=== PATIENT | female | born 1985 | race Hispanic/Latino ===

== ENCOUNTER 2016-03-02 22:08 | Emergency (ER) | payer OTHER ==
[~2016-03-02] VITALS: Ht 160 cm; Wt 90.7 kg
[~2016-03-02 22:08] MED LIST: AMOXICILLIN875 M1 PO; CYCLOBENZAPRINE10 M1 PO; FIORICET 300 MG1 CAP PO; IBUPROFEN600 M1 PO; IBUPROFEN800 MG PO; MACROBID 100 M100 MG PO; MOBIC15 M1 PO; NASONEX17 GM NASB; PERCOCET 5-3251 EACH PO; PYRIDIUM200 M1 PO; VITAFOL-ONE CA1 EACH PO; ZOFRAN ODT4 MG PO; ZOFRAN4 M2 PO
--- NOTE | 2016-03-02 22:36 | ED HAND/WRIST INJURY COMPLAINT ---
History of Present Illness General Chief Complaint: Hand or Wrist Injury Stated Complaint: INJURY TO R HAND AROUND 1800 Source: patient Exam Limitations: no limitations Vital Signs & Intake/Output Vital Signs & Intake/Output Vital Signs Date Time Temp Pulse Resp B/P Pulse O2 O2 Flow FiO2 Ox Delivery Rate 03/03 0040 96.5 88 18 140/70 99 Room Air 03/02 2216 97.6 91 16 142/76 98 Room Air Room Air ED Intake and Output 03/03 0000 03/02 1200 Intake Total 0 Output Total Balance 0 Intake, Oral 0 Patient 200 lb Weight Allergies Coded Allergies: NO KNOWN ALLERGIES (03/02/16) Reconcile Medications Cyclobenzaprine HCl 10 MG TABLET 1 TAB PO Q8P SPASMS Meloxicam (Mobic) 15 MG TABLET 1 TAB PO DAILY PAIN Triage Note: PT TO TRIAGE WITH PAIN TO HER RIGHT HAND 2-3 DIGTS AFTER FALLING AT 1800 TODAY. PT STATES SLIPPED ON ICE AND TRIED TO CATCH HERSELF AND FELL WRONG. PT MEDICATED AT TRIAGE. Triage Nurses Notes Reviewed? yes : No Patient currently breastfeeds: No HPI: This patient is a 30-year-old female who presented to the emergency department today for evaluation of right hand pain status post fall. The patient reported that she was playing with her son outside and she slipped. She reported that she tried to reach out and grab something in front of her, but fell onto her right hand. The patient reported that the pains proximally 6 out of 10. She did not take any medication for the pain prior to arrival in the emergency department. She reported that the pain is throbbing and she feels some numbness and tingling in her second and third digits. The patient reported that she has bruising and difficulty moving her second and third digits. She denied any wrist or elbow pain. (KEAGAN AMOR PA-C) Past History Travel History Traveled to [place] past 21 day No Medical History Any Pertinent Medical History? 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 No (KEAGAN AMOR PA-C) Review of Systems Review of Systems Constitutional: Reports: no symptoms. EENTM: Reports: no symptoms. Respiratory: Reports: no symptoms. Cardiovascular: Reports: no symptoms. GI: Reports: no symptoms. Musculoskeletal: Reports: see HPI. Skin: Reports: no symptoms. Neurological/Psychological: Reports: see HPI. All Other Systems: Reviewed and Negative (MT CERON,KEAGAN) Physical Exam Physical Exam Hand Left: normal inspection, normal range of motion Hand Right: ECCHYMOSIS AND EDEMATO THE dip AND pip OF THE SECOND AND THIRD DIGITS. dECREASED ACTIVE RANGE OF MOTION OF THE SECOND AND THIRD DIGITS. nO EVIDENCE OF NAIL INJURY. nO SIGNS OF SKIN BREAKDOWN OR LACERATIONS. nO ERYTHEMA Comments: Well-developed well-nourished person in no acute distress HEENT: Head normocephalic, moist mucous membranes Neck: Supple, no lymphadenopathy Back: Normal gait Respiratory: No respiratory distress. Speaking in full sentences Extremities: No bony or muscular deformities noted Neuro: Alert and oriented x3 Psych: Mood affect normal, normal memory normal judgment. Skin: Warm and dry, no rash on exposed skin (MT CERON,KEAGAN) Progress Differential Diagnosis: abscess, cellulitis, contusion, compartment syndrome, dislocation, felon, fracture, sprain, tenosynovitis Plan of Care: Orders Procedure Date/time Status URINE 03/02 2222 Complete Laboratory Tests 03/02/162235: Urine Test NEGATIVE Diagnostic Imaging: Viewed by Me: Radiology Read. Discussed w/RAD: Radiology Read. Radiology Impression: PATIENT: MAURICE BLANKENSHIP PRESENT AGE: 30 PATIENT ACCOUNT NO: [id number] : 87 LOCATION: [facility] ORDERING PHYSICIAN: KEAGAN AMOR PA-C SERVICE DATE: 03/02/16 EXAM TYPE: RAD - XRY-HAND, RIGHT EXAMINATION: XR HAND, RIGHT CLINICAL INFORMATION: Fall with pain. Rule out fracture COMPARISON: None TECHNIQUE: AP, lateral, and oblique views of the right hand. FINDINGS: No acute fracture or dislocation. Joint spaces are maintained. Alignment is maintained. The soft tissues are unremarkable. IMPRESSION: No fracture or malalignment. DICTATED BY: KUSUM QUIÑONES,ANKIT DATE/TIME DICTATED:03/03/1625 SUBSCRIPTION CREW LEADER:PAUL DATE/ TIME TRANSCRIBED:01/08/17 / 0026 CONFIDENTIAL, DO NOT COPY WITHOUT APPROPRIATE AUTHORIZATION. <Electronically signed in Other Vendor System> SIGNED BY: ANKIT NOE MD 03/03/16 0030 (KEAGAN AMOR PA-C) Departure Departure Disposition: HOME OR SELF CARE Condition: Stable Clinical Impression Primary Impression: Hand injury Qualifiers: Encounter type: initial encounter Laterality: right Qualified Code: S69.91XA - Unspecified injury of right wrist, hand and finger(s), initial encounter Referrals: NITIN PERSAUD MD PATIENT HAS NO PRIMARY CARE DR (PCP/Family) Additional Instructions: Please rest your hand and use the splints provided to you. Please call the orthopedic physician is information has been provided to you in this packet for further evaluation. Return for any worsening symptoms or concerns. Departure Forms: Customer Survey General Discharge Information (KEAGAN AMOR PA-C) PA/RN NIGHT Co-Sign Statement Statement: ED Attending supervision documentation- [] I saw and evaluated the patient. I have also reviewed all the pertinent lab results and diagnostic results. I agree with the findings and the plan of care as documented in the PA's/RN NIGHT's documentation. [x] I have reviewed the ED Record and agree with the PA's/RN NIGHT's documentation. [] Additions or exceptions (if any) to the PAs/RN NIGHT's note and plan are summarized below: [] (JEANNIE QUIÑONES,JAC Nava)
--- NOTE | 2016-03-03 00:30 | RADIOLOGY REPORT ---
EXAMINATION: XR HAND, RIGHT CLINICAL INFORMATION: Fall with pain. Rule out fracture COMPARISON: None TECHNIQUE: AP, lateral, and oblique views of the right hand. FINDINGS: No acute fracture or dislocation. Joint spaces are maintained. Alignment is maintained. The soft tissues are unremarkable. IMPRESSION: No fracture or malalignment.
[2016-03-03 00:40] VITALS: BP 140/70
== END 2016-03-03 00:41 ==
LOC: ERH 22:08
DX: S09.90XA Unspecified injury of head, initial encounter (principal); W19.XXXA Unspecified fall, initial encounter
CPT/HCPCS: 73130-RT; 81025

== ENCOUNTER 2016-03-16 14:00 | Emergency (ER) | payer OTHER ==
[~2016-03-16] VITALS: Ht 160 cm; Wt 92.1 kg
--- NOTE | 2016-03-16 14:36 | ED INFLUENZA/URI COMPLAINT ---
History of Present Illness General Chief Complaint: General Adult Stated Complaint: CONGESTION, WHEEZING Source: patient Exam Limitations: no limitations Vital Signs & Intake/Output Vital Signs & Intake/Output Vital Signs Date Time Temp Pulse Resp B/P Pulse O2 O2 Flow FiO2 Ox Delivery Rate 03/16 1547 98.5 99 16 125/82 98 Room Air 03/16 1533 98.4 03/16 1529 Room Air 03/16 1456 98.4 03/16 1410 98.4 109 18 129/80 96 Room Air Room Air Allergies Coded Allergies: NO KNOWN ALLERGIES (03/02/16) Reconcile Medications Cyclobenzaprine HCl 10 MG TABLET 1 TAB PO Q8P SPASMS Meloxicam (Mobic) 15 MG TABLET 1 TAB PO DAILY PAIN Ondansetron HCl (Zofran) 4 MG TABLET 1 TAB PO Q6-8P PRN NAUSEA Triage Note: TRIAGE: 30 Y/O FEMALE PRESENTS WITHMULTIPLE COMPLAINTS: POSITIVE AT HOME TEST ON 03/14/2016, COUGH, CONGESTION, ETC. AFEBRILE IN TRIAGE. Triage Nurses Notes Reviewed? yes Onset: Gradual Duration: constant Timing: recent history Severity: moderate Severity Numbers: 5 : Yes Patient currently breastfeeds: No HPI: Patient is a 30-year-old female who presents emergency room with a 2 day history of generalized weakness fatigue body aches fevers chills and nonproductive cough sore throat and nausea noted today. Patient is unable tolerate anything by mouth today. Patient states that 2 days ago she took a home test found out to be positive. Patient does have similar sick contacts one son has similar symptoms. Patient has been complaining of a 10 day history of intermittent waxing and waning headache in which patient was previously prescribed Fioricet. Last menstrual period was January 31. Patient denies any chest pain and arm pain jaw pain abdominal pain vaginal bleeding vaginal discharge dysuria hematuria (ANNA MARIE MARTINEZ) Past History Travel History Traveled to [place] past 21 day No Medical History Any Pertinent Medical History? 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 No (ANNA MARIE MARTINEZ) Review of Systems Review of Systems Constitutional: Reports: see HPI, chills, fever. EENTM: Reports: throat pain. Respiratory: Reports: see HPI, cough. Cardiovascular: Reports: no symptoms. GI: Reports: see HPI, nausea. Denies: abdominal pain. Genitourinary: Reports: no symptoms. Denies: discharge, dysuria. Musculoskeletal: Reports: see HPI, joint pain. Skin: Reports: no symptoms. Neurological/Psychological: Reports: see HPI, headache. Hematologic/Endocrine: Reports: no symptoms. Immunologic/Allergic: Reports: no symptoms. All Other Systems: Reviewed and Negative (ANNA MARIE MARTINEZ) Physical Exam Physical Exam General Appearance: well developed/nourished, no apparent distress, alert Ears, Nose, Throat: normal ENT inspection, moist mucous membrane, hearing grossly normal, Tympanic normal, pharynx normal Comments: Well-developed well-nourished person in no acute distress HEENT: Normal EENT exam, extraocular motion intact, no nystagmus. Pupils equally round and reactive to light and accommodation. Nose is atraumatic. External auditory canal and Tympanic membranes clear. Pharynx normal. No swelling or edema. Neck: Supple, no lymphadenopathy, normal range of motion without pain or tenderness Back: Nontender, no CVA tenderness. Cardiovascular: Regular rate and rhythms no murmurs rubs or gallops, normal JVP Respiratory: Chest nontender. No respiratory distress.breath sounds clear to auscultation bilaterally Abdomen: Soft, nontender nondistended, no appreciable organomegaly. Normal bowel sounds. No ascites Extremity: No edema, no calf tenderness to palpation, normal and equal pulses. Neuro: Alert oriented x3, motor sensory normal, Skin: No appreciable rash on exposed skin, skin is warm and dry. Psych: Mood and affect is normal, memory and judgment is normal. Core Measures Severe Sepsis Present: No Septic Shock Present: No (ANNA MARIE MARTINEZ) Progress Differential Diagnosis: influenza, meningitis, neutropenia, otitis, pneumonia, pharyngitis, sinusitis, eCTOPIC , Plan of Care: Orders Procedure Date/time Status URINE 03/16 1452 Complete URINALYSIS 03/16 1451 Complete RAPID VIRAL INFLUENZA A 03/16 1449 Complete THROAT CULTURE W/QUICK STREP 03/16 1449 Active Laboratory Tests 03/16/16 1452: Urine Color YEL, Urine Clarity HAZY H, Urine pH 6.5, Ur Specific [place] 1.020, Urine Protein NEG, Urine Ketones NEG, Urine Nitrite NEG, Urine Bilirubin NEG, Urine Urobilinogen 0.2, Ur Leukocyte Esterase NEG, Ur Microscopic SEDIMENT EXAMINED, Urine RBC 1-3, Urine WBC RARE, Ur Epithelial Cells MANY H, Urine Mucus RARE, Urine Hemoglobin SMALL H, Urine Glucose NEG, Urine Test POSITIVE 03/16/16 1449: Urine Test Cancelled I has unremarkable physical exam findings and no abdominal pain. Due to history of present illness and exam findings or suspicion of upper respiratory infection most likely viral etiology. Strep culture is currently pending. Patient was notified of confirmation. Patient has no abdominal complaints no complaints and which at this time I do not suspect patient have appendicitis nor ectopic . Patient was by mouth challenge prior to arrival was able tolerate. Patient had significant complete resolution of nausea prior to discharge. Discussed disposition plan with Dr. Graham who agrees (ANNA MARIE MARTINEZ) Initial ED EKG: none (ANNA MARIE MARTINEZ) Departure Departure Disposition: HOME OR SELF CARE Condition: Stable Clinical Impression Primary Impression: Upper respiratory disease Secondary Impressions: Referrals: PATIENT HAS NO PRIMARY CARE DR (PCP/Family) Additional Instructions: As discussed begin the prescription of Zofran for nausea. Begin drinking plenty of fluids for hydration. Begin [id number] Tylenol for headaches and body aches. On Friday follow-up with your established NOZZLE CEMENT SPRAYER HELPER. Begin over-the- counter vitamins. If symptoms worsen or if he develop any new concerning symptom return to emergency room immediately. Please discontinue the use of Fioricet. Departure Forms: Customer Survey General Discharge Information Prescriptions: Current Visit Scripts Ondansetron HCl (Zofran) 1 TAB PO Q6-8P PRN NAUSEA #15 TAB (ANNA MARIE MARTINEZ) PA/STORAGE MANAGEMENT CONSULTANT Co-Sign Statement Statement: ED Attending supervision documentation- [] I saw and evaluated the patient. I have also reviewed all the pertinent lab results and diagnostic results. I agree with the findings and the plan of care as documented in the PA's/STORAGE MANAGEMENT CONSULTANT's documentation. [X] I have reviewed the ED Record and agree with the PA's/STORAGE MANAGEMENT CONSULTANT's documentation. [] Additions or exceptions (if any) to the PAs/STORAGE MANAGEMENT CONSULTANT's note and plan are summarized below: [] (BERRY QUIÑONES,JIM Verma)
[2016-03-16] MEDS ORDERED: ZOFRAN4 M2 PO (15:38)
[2016-03-16 15:47] VITALS: BP 125/82
== END 2016-03-16 15:48 ==
LOC: ERH 14:00
DX: O99.511 Diseases of the respiratory system complicating pregnancy, first trimester (principal); J06.9 Acute upper respiratory infection, unspecified; Z3A.00 Weeks of gestation of pregnancy not specified
CPT/HCPCS: 81001; 81025; 87804; 87804-59; J3101

== ENCOUNTER 2016-03-25 01:40 | Emergency (ER) | payer OTHER ==
[2016-03-25 01:54] VITALS: BP 126/79
--- NOTE | 2016-03-25 02:28 | ED INFLUENZA/URI COMPLAINT ---
History of Present Illness General Chief Complaint: Ear Complaints Stated Complaint: RIGHT EAR PAIN , 5 WEEKS PREG Source: patient Exam Limitations: no limitations Vital Signs & Intake/Output Vital Signs & Intake/Output Vital Signs Date Time Temp Pulse Resp B/P Pulse O2 O2 Flow FiO2 Ox Delivery Rate 03/25 0223 Room Air 03/25 0154 97.6 91 18 126/79 98 Room Air Allergies Coded Allergies: NO KNOWN ALLERGIES (03/02/16) Reconcile Medications Amoxicillin/Potassium Clav (Augmentin 875-125 Tablet) 875 MG-125 MG TABLET 1 TAB PO BID EAR INFECTION Cyclobenzaprine HCl 10 MG TABLET 1 TAB PO Q8P SPASMS Meloxicam (Mobic) 15 MG TABLET 1 TAB PO DAILY PAIN Ondansetron HCl (Zofran) 4 MG TABLET 1 TAB PO Q6-8P PRN NAUSEA Triage Note: C/O RT EARACHE AND SORE THROAT PT IS 5 WEEKS Triage Nurses Notes Reviewed? yes Onset: Gradual Duration: hour(s): Timing: recent history Severity: moderate Prior Episodes/Possible Cause: occassional episodes Modifying Factors: Improves With: rest. Associated Symptoms: right ear pain : Yes Patient currently breastfeeds: No HPI: 30yo woman 5 weeks , presents with right ear pain. She notes "My ear started popping and ringing late last night." She notes no cough runny nose fever or dysuria. She shares that she is 5 weeks and has an appointment later today. She feels no contractions abdominal pain and vaginal discharge or vaginal bleeding. She is otherwise well. Past History Travel History Traveled to [place] past 21 day No Medical History Any Pertinent Medical History? 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 No Review of Systems Review of Systems Constitutional: Reports: no symptoms. EENTM: Reports: no symptoms. Respiratory: Reports: no symptoms. Cardiovascular: Reports: no symptoms. GI: Reports: no symptoms. Genitourinary: Reports: no symptoms. Musculoskeletal: Reports: no symptoms. Skin: Reports: no symptoms. Neurological/Psychological: Reports: no symptoms. Hematologic/Endocrine: Reports: no symptoms. Immunologic/Allergic: Reports: no symptoms. All Other Systems: Reviewed and Negative Physical Exam Physical Exam General Appearance: well developed/nourished, mild distress Head: atraumatic, normal appearance Eyes: Bilateral: normal appearance. Ears, Nose, Throat: right TM with erythema, left TM normal Neck: normal inspection, supple, full range of motion Respiratory: normal breath sounds, chest non-tender, no respiratory distress, quiet respiration, lungs clear Cardiovascular: regular rate/rhythm Gastrointestinal: normal bowel sounds, soft, non-tender, no organomegaly Back: normal inspection, normal range of motion Extremities: normal inspection, normal capillary refill, normal range of motion, no edema Neurologic/Psych: no motor/sensory deficits, awake, alert, oriented x 3 Skin: intact, normal color, warm/dry Core Measures Severe Sepsis Present: No Septic Shock Present: No Progress Differential Diagnosis: otitis media versus sinusitis versus other Plan of Care: Orders Procedure Date/time Status THROAT CULTURE W/QUICK STREP 03/25 0156 Active Initial ED EKG: none Departure Departure Disposition: HOME OR SELF CARE Condition: Stable Clinical Impression Primary Impression: Otitis media Secondary Impressions: Referrals: PATIENT HAS NO PRIMARY CARE DR (PCP/Family) Departure Forms: Customer Survey General Discharge Information Prescriptions: Current Visit Scripts Amoxicillin/Potassium Clav (Augmentin 875-125 Tablet) 1 TAB PO BID #20 TAB Comments Miss Herman is well-appearing in the ED with signs of right otitis media. I gave her prescription for Augmentin. I counseled her against the use of NSAIDs while . I encouraged her to follow-up later on this morning with her PICKLING OPERATOR.
[2016-03-25] MEDS ORDERED: AUGMENTIN 875-1 EACH PO (02:43)
== END 2016-03-25 02:50 ==
LOC: ERH 01:40
DX: O26.91 Pregnancy related conditions, unspecified, first trimester (principal); H66.91 Otitis media, unspecified, right ear
CPT/HCPCS: J3490

== ENCOUNTER 2016-04-23 18:57 | Emergency (ER) | payer OTHER ==
[~2016-04-23 18:57] MED LIST changes: +AUGMENTIN 875-1 EACH PO
--- NOTE | 2016-04-23 21:47 | ED GI/GU/ABDOMINAL COMPLAINT ---
History of Present Illness General Chief Complaint: Abdominal Pain/Flank Pain Stated Complaint: LOW ABD PAIN-10 1/2 WEEKS Source: patient Exam Limitations: no limitations Vital Signs & Intake/Output Vital Signs & Intake/Output Vital Signs Date Time Temp Pulse Resp B/P Pulse O2 O2 Flow FiO2 Ox Delivery Rate 04/23 2255 97.1 84 18 128/60 94 Room Air 04/23 1905 97.0 85 20 123/75 98 Allergies Coded Allergies: NO KNOWN ALLERGIES (03/02/16) Reconcile Medications Ondansetron (Zofran Odt) 4 MG TAB.RAPDIS 1 TAB SL TID PRN NAUSEA Ondansetron HCl 8 MG TABLET 1 TAB PO BID NAUSEA (Reported) Pnv#26/Iron Poly/FA/Dha (Vitafol-One Capsule) 29 MG IRON-1 MG-200 MG CAPSULE 1 CAP PO DAILY (Reported) Triage Note: PER PT PAIN TO LLQ SINCE YESTERDAY, WHITISH DRAINAGE. LMP 02/08/17. OBGYN STATES "BABY LOW" VIA US. PT REPORTS 7 MISCARRIAGES 1 LIVING CHILD. Triage Nurses Notes Reviewed? yes ? Y Is pt currently ? No HPI: This patient is a G8A6P1 female who presented to the emergency department today for evaluation of abdominal pain. The patient reported that she is approximately 10 weeks gestation. She did have an ultrasound confirming intrauterine by her COMPUTER CLERK out of [facility]. 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 She had 1 live to her son. The patient reported that yesterday she started having a 9 out of 10, sharp abdominal pain which, "moved around my stomach." She reported that the pain was approximately an 8 out of 10 in the waiting room, but right now she does not feel the pain. The patient reported associated nausea, but no vomiting. She denied any vaginal discharge, vaginal bleeding, leakage of fluid, diarrhea, urinary symptoms, fevers, chills, chest pain, or difficulty breathing. (MT CERON,KEAGAN) Past History Travel History Traveled to [place] past 21 day No Medical History Any Pertinent Medical History? 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 No (KEAGAN AMOR PA-C) Review of Systems Review of Systems Constitutional: Reports: no symptoms. EENTM: Reports: no symptoms. Respiratory: Reports: no symptoms. Cardiovascular: Reports: no symptoms. GI: Reports: see HPI. Genitourinary: Reports: no symptoms. Musculoskeletal: Reports: no symptoms. Skin: Reports: no symptoms. Neurological/Psychological: Reports: no symptoms. All Other Systems: Reviewed and Negative (KEAGAN AMOR PA-C) Physical Exam Physical Exam Gastrointestinal: normal bowel sounds, soft, no organomegaly, TENDERNESS TO PALPATION IN THE RIGHT UPPER QUADRANT WITH NO REBOUND OR GUARDING. nO mCbURNEY' S POINT TENDERNESS. nEGATIVE rOVSING SIGN. nEGATIVE PSOAS SIGN. nO MASSES APPRECIATED. nONDISTENDED Comments: Well-developed well-nourished person in no acute distress HEENT: Normal EENT exam, head normocephalic, moist mucous membranes Neck: Supple, no lymphadenopathy Back: Normal inspection. No CVA tenderness Cardiovascular: Regular rate and rhythm with no murmurs Respiratory: Chest nontender. No respiratory distress. Breath sounds clear to auscultation bilaterally Extremity: Normal and equal pulses Neuro: Alert oriented x3, cranial nerves II through XII grossly intact. Skin: No appreciable rash on exposed skin, skin is warm and dry. Psych: Mood and affect is normal Core Measures ACS in differential dx? No Severe Sepsis Present: No Septic Shock Present: No (KEAGAN AMOR PA-C) Progress Differential Diagnosis: AMI, appendicitis, biliary colic, bowel obstruction, colon cancer, cholecystitis, diverticulitis, ectopic , endometritis, gastritis, hepatitis, ischemic bowel, inflamm bowel dis, intrauterine , kidney stone, ovarian cyst, ovarian torsion, pancreatitis, PID/cervicitis, PUD/ GERD, perforated viscous, threatened AB, UTI/pyelo Plan of Care: Orders Procedure Date/time Status US-LIMITED ABDOMEN 04/23 2146 Active Add-on Test (ER Only) 04/23 2146 Active DIRECT BILIRUBIN 04/23 2136 Complete PARTIAL THROMBOPLASTIN TIME 04/23 2020 Complete PROTHROMBIN TIME 04/23 2020 Complete COMPREHENSIVE METABOLIC PANEL 04/23 2020 Complete CBC WITHOUT DIFFERENTIAL 04/23 2020 Complete RHOGAM WORK-UP 04/23 2020 Complete Laboratory Tests 04/23/167: Anion Gap 10, Estimated GFR > 60, BUN/Creatinine Ratio 8.6, Glucose 77, Calcium 10.0, Total Bilirubin 0.5, Direct Bilirubin 0.4, AST 15, ALT 20, Alkaline Phosphatase 77, Total Protein 7.3, Albumin 4.1, Globulin 3.2, Albumin/Globulin Ratio 1.3, PT 10.8, INR 1.03, APTT 30, CBC w Diff NO MAN DIFF REQ, RBC 4.23, MCV 84.5, MCH 28.0, RDW 13.9, MPV 8.2, Gran % 70.3, Lymphocytes % 24.0, Monocytes % 3.3, Eosinophils % 1.5, Basophils % 0.9, Absolute Granulocytes 8.4 H, Absolute Lymphocytes 2.8, Absolute Monocytes 0.4, Absolute Eosinophils 0.2, Absolute Basophils 0.1, PUBS MCHC 33.1 Diagnostic Imaging: Viewed by Me: Ultrasound. Discussed w/RAD: Ultrasound. Radiology Impression: PATIENT: MAURICE BLANKENSHIP PRESENT AGE: 30 PATIENT ACCOUNT NO: [id number] : 87 LOCATION: [facility] ORDERING PHYSICIAN: KEAGAN AMOR PA-C SERVICE DATE: 04/23/16-2020 EXAM TYPE: US - US TRANSVAG EXAMINATION: US TRANSVAGINAL CLINICAL INFORMATION: First trimester presents with abdominal pain 2 days. LMP not known. COMPARISON: None TECHNIQUE: Transabdominal ultrasound of the gravid uterus. Grayscale and M-mode ultrasound were employed. FINDINGS: Within the uterus is a well-formed gestational sac. movement was observed. The crown- rump length of 3.1 cm corresponds to a gestational age of 10 weeks 1 day. This yields an estimated date of delivery of 11/18/2016. Yolk sac is still present. A corpus luteum cyst is seen in the right ovary. It measures 2.6 cm in diameter. Left ovary was not localized on this exam. There is no free fluid in the cul-de- sac. The heart rate is 165 bpm. IMPRESSION: Single live intrauterine estimated to be 10 weeks 1 day gestational age. STALIN is 11/18/2016. DICTATED BY: BASILIO VILLA MD DATE/TIME DICTATED:04/23/162121 BAG SEWER:PAUL DATE/TIME TRANSCRIBED:04/23/162121 CONFIDENTIAL, DO NOT COPY WITHOUT APPROPRIATE AUTHORIZATION. <Electronically signed in Other Vendor System> SIGNED BY: BASILIO VILLA MD 04/23/16 2216 Initial ED EKG: none (MT CERON,KEAGAN) Departure Departure Disposition: HOME OR SELF CARE Condition: Stable Clinical Impression Primary Impression: Abdominal pain Qualifiers: Abdominal location: generalized Qualified Code: R10.84 - Generalized abdominal pain Referrals: UNKNOWN (PCP/Family) Additional Instructions: Takes Zofran as prescribed for nausea. Please call to make a follow-up appointment with your COMPUTER CLERK tomorrow. Rest and return for any worsening symptoms or concerns. Departure Forms: Customer Survey General Discharge Information Prescriptions: Current Visit Scripts Ondansetron (Zofran Odt) 1 TAB SL TID PRN NAUSEA #10 TAB (KEAGAN AMOR PA-C) PA/PHLEBOTOMY DIRECTOR Co-Sign Statement Statement: ED Attending supervision documentation- [] I saw and evaluated the patient. I have also reviewed all the pertinent lab results and diagnostic results. I agree with the findings and the plan of care as documented in the PA's/PHLEBOTOMY DIRECTOR's documentation. [X] I have reviewed the ED Record and agree with the PA's/PHLEBOTOMY DIRECTOR's documentation. [] Additions or exceptions (if any) to the PAs/PHLEBOTOMY DIRECTOR's note and plan are summarized below: [] (BERRY QUIÑONES,JIM Verma)
[2016-04-23 21:54] LABS: ABSOLUTE BASOPHIL COUNT 0.1 /CUMM (0.0-0.2); ABSOLUTE EOSINOPHIL COUNT 0.2 /CUMM (0.0-0.7); ABSOLUTE GRANULOCYTE CT 8.4 /CUMM (1.4-6.5); ABSOLUTE LYMPH COUNT 2.8 /CUMM (1.2-3.4); ABSOLUTE MONOCYTE COUNT 0.4 /CUMM (0.10-0.60); BASOPHIL % 0.9 % (0.0-2.0); EOSINOPHIL % 1.5 % (0-5); GRANULOCYTE % 70.3 % (42.2-75.2); HEMATOCRIT 35.8 % (37-47); MEAN CORPUSCULAR HGB CONC 33.1 G/DL (33.0-37.0); MEAN CORPUSCULAR VOLUME 84.5 FL (81.0-99.0); MEAN PLATELET VOLUME 8.2 FL (7.4-10.4); PLATELET COUNT 254 /CUMM (130-400); RBC DISTRIBUTION WIDTH 13.9 % (11.5-14.5); RED BLOOD CELL CT 4.23 /CUMM (4.20-5.40); WHITE BLOOD CELL COUNT 11.9 /CUMM (4.8-10.8)
[2016-04-23 22:00] LABS: PT 10.8 SEC (9.4-12.5); PTT 30 SEC (25-37)
[2016-04-23] MEDS ORDERED: ONDANSETRON HCL8 MG PO (22:05)
[2016-04-23] MEDS ORDERED: VITAFOL-ONE CA1 EACH PO (22:05)
--- NOTE | 2016-04-23 22:16 | ULTRASOUND REPORT ---
EXAMINATION: US TRANSVAGINAL CLINICAL INFORMATION: First trimester presents with abdominal pain 2 days. LMP not known. COMPARISON: None TECHNIQUE: Transabdominal ultrasound of the gravid uterus. Grayscale and M-mode ultrasound were employed. FINDINGS: Within the uterus is a well-formed gestational sac. movement was observed. The crown-rump length of 3.1 cm corresponds to a gestational age of 10 weeks 1 day. This yields an estimated date of delivery of 11/18/2016. Yolk sac is still present. A corpus luteum cyst is seen in the right ovary. It measures 2.6 cm in diameter. Left ovary was not localized on this exam. There is no free fluid in the cul-de-sac. The heart rate is 165 bpm. IMPRESSION: Single live intrauterine estimated to be 10 weeks 1 day gestational age. STALIN is 11/18/2016.
[2016-04-23] MEDS ORDERED: ZOFRAN ODT4 M1 SL (22:42)
[2016-04-23 22:55] VITALS: BP 128/60
== END 2016-04-23 22:57 ==
LOC: ERH 18:57
PROVIDERS: Physician Assistant
DX: O26.90 Pregnancy related conditions, unspecified, unspecified trimester (principal); R10.32 Left lower quadrant pain
CPT/HCPCS: 76817; 96360

== ENCOUNTER 2016-05-17 15:39 | Emergency (ER) | payer OTHER ==
[~2016-05-17] VITALS: Ht 157.5 cm; Wt 92.1 kg
[~2016-05-17 15:39] MED LIST changes: +ONDANSETRON HCL8 MG PO; +ZOFRAN ODT4 M1 SL
--- NOTE | 2016-05-17 16:25 | ED GI/GU/ABDOMINAL COMPLAINT ---
History of Present Illness General Chief Complaint: Female Urogenital Problems Stated Complaint: 13 WEEKS PREG DISCHARGE Source: patient Exam Limitations: no limitations Vital Signs & Intake/Output Vital Signs & Intake/Output Vital Signs Date Time Temp Pulse Resp B/P Pulse O2 O2 Flow FiO2 Ox Delivery Rate 05/17 1850 98.4 75 18 108/56 95 Room Air Room Air 05/17 1710 98.7 75 18 105/52 97 05/17 1549 98.1 74 18 101/65 99 Room Air Allergies Coded Allergies: NO KNOWN ALLERGIES (03/02/16) Triage Note: RECEIVED 30 YO FEMALE 14 WEEKS , DUE DATE 11/13/16, C/O NOTICED BLOOD WITH MUCUS WHEN WIPING TODAY. PT ALSO REPORTS LOWER PELVIC AREA CRAMPING PAIN RADIATING TO GENITAL AREA, STARTED YESTERDAY. PT REPORTS NAUSEA, NO VOMITING OR DIARRHEA. PT DENIES ACUTE OR CHARLI VAGINAL BLEEDING, BLOOD WHEN WIPING ONLY TODAY. Triage Nurses Notes Reviewed? yes ? Y Is pt currently ? No HPI: This patient is a 30 year old G9A7P1 female who is currently 14 weeks gestation who presented to the emergency department today for evaluation of abdominal pain and vaginal spotting. She reported that she started feeling constant, 9 out of 10, cramping, lower abdominal pain yesterday which radiates to her pelvic region and feeling like, "I was going to pass out." She reported that today the abdominal pain is a 3 or 4 out of 10. She went to the bathroom today and noticed a small amount of dark red blood on the toilet paper once. No other episodes of bleeding. No vaginal discharge, vaginal itching or order, or any leakage of fluid. She is feeling the baby move around normaly. Reported associated nausea. No vomiting, chest pain, shortness of breath, fevers, or chills. She has had one induced and 6 miscariages. Her [employer] [address]. Kahn. (MT CERON,KEAGAN) Reconcile Medications Ondansetron (Zofran Odt) 4 MG TAB.RAPDIS 1 TAB SL TID PRN nausea Ondansetron HCl 8 MG TABLET 1 TAB PO BID NAUSEA (Reported) Pnv#26/Iron Poly/FA/Dha (Vitafol-One Capsule) 29 MG IRON-1 MG-200 MG CAPSULE 1 CAP PO DAILY (Reported) (ZACKARY WILSON DO) Past History Travel History Traveled to [place] past 21 day No Medical History Any Pertinent Medical History? see below for history Neurological: migraine EENT: NONE Cardiovascular: NONE Respiratory: NONE Gastrointestinal: NONE Hepatic: NONE Renal: NONE Musculoskeletal: NONE Psychiatric: NONE Endocrine: NONE Blood Disorders: NONE Cancer(s): NONE CLINICAL DATA PROGRAMMER/Reproductive: NONE Surgical History Surgical History: non-contributory, N Psychosocial History What is your primary language Syrian Tobacco Use: Never used Family History Hx Contributory? No (KEAGAN AMOR PA-C) Review of Systems Review of Systems Constitutional: Reports: no symptoms. EENTM: Reports: no symptoms. Respiratory: Reports: no symptoms. Cardiovascular: Reports: no symptoms. GI: Reports: see HPI. Genitourinary: Reports: see HPI. Musculoskeletal: Reports: no symptoms. Skin: Reports: no symptoms. Neurological/Psychological: Reports: see HPI. All Other Systems: Reviewed and Negative (KEAGAN AMOR PA-C) Physical Exam Physical Exam Gastrointestinal: normal bowel sounds, soft, uterus palpable approximately 2 cm above the pubic symphysis. Mild tenderness to palpation in the mid lower abdomen with no rebound or guarding. Nondistended. No masses appreciated. No organomegaly Comments: Well-developed well-nourished person in no acute distress HEENT: Normal EENT exam, moist mucous membranes Neck: Supple. No lymphadenopathy Back: Normal gait. Normal inspection. No CVA tenderness Cardiovascular: Regular rate and rhythm with no murmurs Respiratory: No respiratory distress. Breath sounds clear to auscultation bilaterally with no wheezes, rales, or rhonchi Extremity: Normal equal pulses. No edema Neuro: Alert oriented x3, cranial nerves II through XII grossly intact. Skin: No appreciable rash on exposed skin, skin is warm and dry. Psych: Mood and affect is normal Core Measures ACS in differential dx? No Severe Sepsis Present: No Septic Shock Present: No (KEAGAN AMOR PA-C) Progress Differential Diagnosis: appendicitis, biliary colic, bowel obstruction, colon cancer, cholecystitis, diverticulitis, ectopic , endometritis, gastritis, hepatitis, ischemic bowel, inflamm bowel dis, intrauterine , kidney stone, ovarian cyst, ovarian torsion, pancreatitis, PID/cervicitis, PUD/ GERD, threatened AB, UTI/pyelo Plan of Care: Orders Procedure Date/time Status CULTURE,URINE 05/17 1621 Active URINALYSIS 05/17 1621 Complete HUMAN BETA HCG TITRE 05/17 1621 Complete COMPREHENSIVE METABOLIC PANEL 05/17 1621 Complete CBC WITHOUT DIFFERENTIAL 05/17 1621 Complete TYPE & SCREEN (NOT X-MATCH) 05/17 1621 Complete Laboratory Tests 05/17/161647: Urine Color YEL, Urine Clarity CLEAR, Urine pH 6.0, Ur Specific [place] 1.025, Urine Protein NEG, Urine Ketones 40 H, Urine Nitrite NEG, Urine Bilirubin NEG, Urine Urobilinogen 0.2, Ur Leukocyte Esterase NEG, Ur Microscopic SEDIMENT EXAMINED, Urine Hemoglobin NEG, Urine Glucose NEG 05/17/161646: Anion Gap 9, Estimated GFR > 60, BUN/Creatinine Ratio 7.1, Glucose 84, Calcium 10.2, Total Bilirubin 0.6, AST 15, ALT 27, Alkaline Phosphatase 66, Total Protein 7.2, Albumin 3.9, Globulin 3.3, Albumin/Globulin Ratio 1.2, Beta HCG, Quant 97656.0, CBC w Diff NO MAN DIFF REQ, RBC 4.36, MCV 85.1, MCH 27.5, RDW 14.2, MPV 8.1, Gran % 71.6, Lymphocytes % 22.6, Monocytes % 3.5, Eosinophils % 0.8, Basophils % 1.5, Absolute Granulocytes 7.9 H, Absolute Lymphocytes 2.5, Absolute Monocytes 0.4, Absolute Eosinophils 0.1, Absolute Basophils 0.2, PUBS MCHC 32.3 L Microbiology 05/17 1646 URINE ROUT: Urine Culture - RECD Diagnostic Imaging: Viewed by Me: Ultrasound. Discussed w/RAD: Ultrasound. Radiology Impression: PATIENT: MAURICE BLANKENSHIP PRESENT AGE: 30 PATIENT ACCOUNT NO: [id number] : 87 LOCATION: [facility] ORDERING PHYSICIAN: KEAGAN AMOR PA-C SERVICE DATE: 05/17/16 EXAM TYPE: US - US- VIABILITY EXAMINATION: US , VIABILITY CLINICAL INFORMATION: viability. 14-week gestation vaginal bleeding, pelvic pain. COMPARISON: Ultrasound March 2016 TECHNIQUE: Limited banks-scale Doppler and color-flow imaging of the , transabdominal. FINDINGS: Single, intrauterine identified. Gestational age by ultrasound 14 weeks 3 days corresponding to an estimated date of delivery of 11/12/2016. Multiple measurements obtained: Biparietal diameter 2.26 cm corresponding to a gestational age of 13 weeks 6 days. Head circumference 8.98 cm corresponding to a gestational age of 14 weeks 1 day. Abdominal circumference measures 8.9 cm corresponding to a gestational age of 15 weeks 1 day. length 1.53 cm corresponding to 14 weeks 4 days. lie is transverse. Single gestation. heart rate noted to be 146 bpm. Placenta anteriorly located. Fluid volume appears within normal limits. IMPRESSION: Single, live, intrauterine with an ultrasound estimated gestational age of 14 weeks 3 days corresponding to an estimated date of delivery of 11/12/2016. DICTATED BY: RODERICK MITCHELL MD DATE/TIME DICTATED:05/17/161743 CREW LEADER/CONTROL ROOM OPERATOR:PAUL DATE/TIME TRANSCRIBED:05/17/161743 CONFIDENTIAL, DO NOT COPY WITHOUT APPROPRIATE AUTHORIZATION. <Electronically signed in Other Vendor System> SIGNED BY: RODERICK MITCHELL MD 05/17/16 8873 Initial ED EKG: none (KEAGAN AMOR PA-C) Departure Departure Disposition: HOME OR SELF CARE Condition: Stable Clinical Impression Primary Impression: Abdominal pain affecting Referrals: UNKNOWN (PCP/Family) Additional Instructions: Please rest and avoid any heavy lifting or strenuous activity. Please call your OB/GYBN to schedule a follow-up appointment. Return to the emergency department for any worsening symptoms or concerns. Departure Forms: Customer Survey General Discharge Information Prescriptions: Current Visit Scripts Ondansetron (Zofran Odt) 1 TAB SL TID PRN nausea #10 TAB (KEAGAN AMOR PA-C) PA/HELP AID Co-Sign Statement Statement: ED Attending supervision documentation- [X] I saw and evaluated the patient. I have also reviewed all the pertinent lab results and diagnostic results. I agree with the findings and the plan of care as documented in the PA's/HELP AID's documentation. [] I have reviewed the ED Record and agree with the PA's/HELP AID's documentation. [] Additions or exceptions (if any) to the PAs/HELP AID's note and plan are summarized below: [] (ZACKARY WILSON DO
[2016-05-17 17:01] LABS: ABSOLUTE BASOPHIL COUNT 0.2 /CUMM (0.0-0.2); ABSOLUTE EOSINOPHIL COUNT 0.1 /CUMM (0.0-0.7); ABSOLUTE GRANULOCYTE CT 7.9 /CUMM (1.4-6.5); ABSOLUTE LYMPH COUNT 2.5 /CUMM (1.2-3.4); ABSOLUTE MONOCYTE COUNT 0.4 /CUMM (0.10-0.60); BASOPHIL % 1.5 % (0.0-2.0); EOSINOPHIL % 0.8 % (0-5); GRANULOCYTE % 71.6 % (42.2-75.2); HEMATOCRIT 37.1 % (37-47); MEAN CORPUSCULAR HGB 27.5 PG (27.0-31.0); MEAN CORPUSCULAR HGB CONC 32.3 G/DL (33.0-37.0); MEAN CORPUSCULAR VOLUME 85.1 FL (81.0-99.0); MEAN PLATELET VOLUME 8.1 FL (7.4-10.4); PLATELET COUNT 241 /CUMM (130-400); RBC DISTRIBUTION WIDTH 14.2 % (11.5-14.5); RED BLOOD CELL CT 4.36 /CUMM (4.20-5.40); WHITE BLOOD CELL COUNT 11.1 /CUMM (4.8-10.8)
--- NOTE | 2016-05-17 18:06 | ULTRASOUND REPORT ---
EXAMINATION: US , VIABILITY CLINICAL INFORMATION: viability. 14-week gestation vaginal bleeding, pelvic pain. COMPARISON: Ultrasound March 2016 TECHNIQUE: Limited banks-scale Doppler and color-flow imaging of the , transabdominal. FINDINGS: Single, intrauterine identified. Gestational age by ultrasound 14 weeks 3 days corresponding to an estimated date of delivery of 11/12/2016. Multiple measurements obtained: Biparietal diameter 2.26 cm corresponding to a gestational age of 13 weeks 6 days. Head circumference 8.98 cm corresponding to a gestational age of 14 weeks 1 day. Abdominal circumference measures 8.9 cm corresponding to a gestational age of 15 weeks 1 day. length 1.53 cm corresponding to 14 weeks 4 days. lie is transverse. Single gestation. heart rate noted to be 146 bpm. Placenta anteriorly located. Fluid volume appears within normal limits. IMPRESSION: Single, live, intrauterine with an ultrasound estimated gestational age of 14 weeks 3 days corresponding to an estimated date of delivery of 11/12/2016.
[2016-05-17] MEDS ORDERED: ZOFRAN ODT4 M1 SL (18:38)
[2016-05-17 18:50] VITALS: BP 108/56
== END 2016-05-17 18:55 ==
LOC: ERH 15:39
PROVIDERS: Physician Assistant
DX: O99.89 Other specified diseases and conditions complicating pregnancy, childbirth and the puerperium (principal); R10.9 Unspecified abdominal pain; Z3A.14 14 weeks gestation of pregnancy
CPT/HCPCS: 81001; 87086; 96361; 96374; 96375; J0131; J2405

== ENCOUNTER 2017-09-20 23:36 | Emergency (ER) | payer OTHER ==
[~2017-09-20 23:36] MED LIST changes: +HYDROXYZINE HCL50 M1 PO; +MAGIC MOUTH WASH PO; +MEDROL4 M2 PO; +TESSALON PERLE100 M1 PO
--- NOTE | 2017-09-21 | ED ANKLE/FOOT INJURY COMPLAINT ---
History of Present Illness General Chief Complaint: Foot or Ankle Injury Stated Complaint: LEFT ANKLE PAIN/SWELLING Source: patient Exam Limitations: no limitations Vital Signs & Intake/Output Vital Signs & Intake/Output Vital Signs Date Time Temp Pulse Resp B/P B/P Pulse O2 O2 Flow FiO2 Mean Ox Delivery Rate 09/21 0013 96 Room Air 09/20 2348 97.7 86 16 109/74 97 Room Air Allergies Coded Allergies: NO KNOWN ALLERGIES (03/02/16) Reconcile Medications Benzonatate (Tessalon Perle) 100 MG CAPSULE 1 CAP PO TID PRN COUGH Hydroxyzine Hydrochloride (Atarax) 50 MG TAB 1 TAB PO TID PRN itching Ibuprofen 600 MG TABLET 1 TAB PO Q6PRN PRN pain with food [MAGIC MOUTH WASH] 10 ML PO TID PRN PHARYNGITIS 1:1:1 EQUAL PARTS SWISH X 30 SECONDS AND SWALLOW Methylprednisolone. (Medrol) 4 MG TAB.DS.PK 1 DP PO AD allergic reaction 6 on day 1 then reduce by one tablet daily until gone Methylprednisolone. (Medrol) 4 MG TAB.DS.PK 1 DP PO AD INFLAMMATION 6 on day 1 then reduce by one tablet daily until gone Nitrofurantoin Monohyd/M-Cryst (Macrobid 100 MG Capsule) 100 MG CAPSULE 1 CAP PO BID uti with food Ondansetron (Zofran Odt) 4 MG TAB.RAPDIS 1 TAB SL TID PRN nausea Ondansetron HCl 8 MG TABLET 1 TAB PO BID NAUSEA (Reported) Phenazopyridine HCl (Pyridium) 200 MG TABLET 1 TAB PO TID dysuria Pnv#26/Iron Poly/FA/Dha (Vitafol-One Capsule) 29 MG IRON-1 MG-200 MG CAPSULE 1 CAP PO DAILY (Reported) Triage Note: 32YO FEMALE TO TRIAGE W/CO L ANKLE PAIN AND SWELLING SINCE YESTERDAY.DENIES ANY TRAUMA OR INJURY. Triage Nurses Notes Reviewed? yes : No Patient currently breastfeeds: No HPI: Patient presents for evaluation of left ankle pain and swelling. Patient states that over the past few days she's been helping her boyfriend move. Although she denies any known injury she states she is having pain and swelling over the lateral aspect of the left ankle and pain in the sole of the left foot. She also states she is getting a little bit of swelling on the lateral aspect of the right foot as well. The pain is more or less constant but fluctuates in intensity and worsens with ambulation and palpation. Nothing seems to make the pain or swelling improved. Past History Travel History Traveled to [place] past 21 day No Medical History Any Pertinent Medical History? see below for history Neurological: migraine EENT: NONE Cardiovascular: NONE Respiratory: NONE Gastrointestinal: NONE Hepatic: NONE Renal: NONE Musculoskeletal: NONE Psychiatric: depression Endocrine: NONE Blood Disorders: NONE Cancer(s): NONE STATE MANAGER/Reproductive: NONE Surgical History Surgical History: non-contributory, N Psychosocial History What is your primary language Citizen Of [place] Tobacco Use: Quit >30 days ago Family History Hx Contributory? No Review of Systems Review of Systems Constitutional: Reports: no symptoms. EENTM: Reports: no symptoms. Respiratory: Reports: no symptoms. Cardiovascular: Reports: no symptoms. GI: Reports: no symptoms. Genitourinary: Reports: no symptoms. Musculoskeletal: Reports: see HPI. Skin: Reports: no symptoms. Neurological/Psychological: Reports: no symptoms. Hematologic/Endocrine: Reports: no symptoms. Immunologic/Allergic: Reports: no symptoms. All Other Systems: Reviewed and Negative Physical Exam Physical Exam Leg/Knee/Thigh Left: SEE BELOW Comments: Gen.: Well-nourished, well-developed, no acute respiratory distress. Antalgic gait. Head: Normocephalic, atraumatic. Eyes: Normal inspection bilaterally Ears: Normal inspection bilaterally Nose: Normal inspection Throat/mouth : Moist mucosa Neck: Supple, full range of motion, no goiter Heart: Regular rate and rhythm Lungs: Quiet respirations Back: Normal range of motion Extremities: Left ankle: Lateral ankle swelling distal to the lateral malleolus with tenderness but no ecchymoses, left foot tenderness over the sole of the foot with mild soft tissue swelling along the medial aspect of the left heel, no ecchymoses apparent. The left foot is neurovascularly intact with a normal dorsalis pedis pulse, normal color to the toes, normal movement of toes and normal sensation to light touch. Neurologic: Cranial nerves grossly intact, speech is clear Skin: warm and dry Psychiatric: Calm, cooperative, no apparent delusions or hallucinations Progress Differential Diagnosis: fracture, dislocation, sprain, contusion Plan of Care: Orders Procedure Date/time Status Durable Medical Equipment 09/21 0031 Active URINE 09/20 0046 Complete Laboratory Tests 09/20/172358: Urine Test NEGATIVE Diagnostic Imaging: Viewed by Me: Radiology Read. Discussed w/RAD: Radiology Read. Radiology Impression: PATIENT: MAURICE BLANKENSHIP PRESENT AGE: 32 PATIENT ACCOUNT NO: [id number] : 87 LOCATION: [facility] ORDERING PHYSICIAN: Rodrigo Barton MD SERVICE DATE: 09/20/17 EXAM TYPE : RAD - XRY-ANKLE 3 OR MORE VIEWS L; XRY-FOOT COMPLETE, LEFT EXAMINATION: RIGHT FOOT AND ANKLE 6 VIEWS CLINICAL INFORMATION: Pain and swelling. COMPARISON: None. TECHNIQUE: AP, lateral, oblique views of the right foot were obtained in addition to AP, lateral and oblique views of the right ankle. FINDINGS: There are no fractures or dislocations. There is mild soft tissue swelling overlying the lateral malleolus. No ankle joint effusion is identified. IMPRESSION: Mild soft tissue swelling without fracture or dislocation. DICTATED BY: Jermain Marc MD DATE/TIME DICTATED:09/21/1728 MANUFACTURING EXECUTIVE:PAUL DATE/TIME TRANSCRIBED:09/21/1728 CONFIDENTIAL, DO NOT COPY WITHOUT APPROPRIATE AUTHORIZATION. <Electronically signed in Other Vendor System> SIGNED BY: Jermain Marc MD 09/21/1732 Departure Departure Disposition: HOME OR SELF CARE Condition: Stable Clinical Impression Primary Impression: Left ankle sprain Qualifiers: Encounter type: initial encounter Involved ligament of ankle: deltoid ligament Qualified Code: S93.422A - Sprain of deltoid ligament of left ankle, initial encounter Secondary Impressions: Sprain of left foot Qualifiers: Encounter type: initial encounter Qualified Code: S93.602A - Unspecified sprain of left foot, initial encounter Referrals: Jenifer Fu APRN (PCP/Family) Additional Instructions: Ice and elevation of the left ankle over the next 48 hours. Diclofenac as needed for pain. Use the ankle splint as needed to support the ankle while ambulating. Follow-up with your primary care physician in 10-14 days for reevaluation. Return if any concerns or sudden worsening. Please note that there might be incidental findings in your evaluation that are unrelated to the current emergency department visit. Please notify your primary care doctor about this emergency department visit in order to obtain and review all of the testing performed so that these incidental findings can be monitored as needed. If you had an x-ray performed, please understand that some fractures or other findings may not be seen on the initial set of x-rays. If your symptoms persist you might need a repeat set of x-rays to check for such a fracture. If you had a laceration evaluated, please understand that foreign bodies such as glass or wood may not be visible to the naked eye or on plain x-rays. If the wound becomes red, swollen, increasingly more painful or if there is any drainage from the wound, please have it reevaluated by a physician for the possibility of a retained foreign body. If you're unable to follow up as outlined in the discharge instructions please return to the emergency department. Thank you for choosing the [facility] Emergency Department for your care. It was a pleasure to serve you today. Rodrigo Barton M.D. [facility] Departure Forms: Customer Survey General Discharge Information Prescriptions: Current Visit Scripts Diclofenac Potassium 1 TAB PO TID PRN PAIN #21 TAB
--- NOTE | 2017-09-21 00:33 | RADIOLOGY REPORT ---
EXAMINATION: RIGHT FOOT AND ANKLE 6 VIEWS CLINICAL INFORMATION: Pain and swelling. COMPARISON: None. TECHNIQUE: AP, lateral, oblique views of the right foot were obtained in addition to AP, lateral and oblique views of the right ankle. FINDINGS: There are no fractures or dislocations. There is mild soft tissue swelling overlying the lateral malleolus. No ankle joint effusion is identified. IMPRESSION: Mild soft tissue swelling without fracture or dislocation.
[2017-09-21] MEDS ORDERED: DICLOFENAC POTA50 M1 PO (00:51)
[2017-09-21 00:58] VITALS: BP 112/61
== END 2017-09-21 00:58 ==
LOC: ERH 23:36
DX: S93.402A Sprain of unspecified ligament of left ankle, initial encounter (principal); X58.XXXA Exposure to other specified factors, initial encounter; Y93.E6 Activity, residential relocation
CPT/HCPCS: 73610-LT; 73630-LT; 81025